=== PATIENT | female | born 1980 | race Two or more races ===

== ENCOUNTER 2024-08-23 07:15 | Inpatient (IN) | payer OTHER ==
[~2024-08-23] VITALS: Ht 162.6 cm; Wt 72.6 kg
[2024-08-23 07:29] LABS: HEMATOCRIT 34.7 % (36.0-45.00); HEMOGLOBIN 11.5 g/dL (12.0-15.00); MEAN CELL VOLUME 74.8 fL (80.00-100.00); MEAN CORPUSCULAR HEMOGLOBIN 24.8 pg (27.00-32.0); MEAN CORPUSCULAR HGB CONC 33.1 g/dl (32.0-36.0); PLATELET COUNT 443 K/uL (150-450); RED BLOOD COUNT 4.65 M/uL (4.00-6.00)
[2024-08-23 07:35] LABS: RED CELL DISTRIBUTION WIDTH 18.3 % (11.5-14.5)
[2024-08-23 07:37] LABS: PH,URINE 6.5 (5.0-8.0); URINE APPEARANCE Clear; URINE BILIRRUBIN Negative (NEGATIVE); URINE BLOOD Negative; URINE COLOR Yellow; URINE GLUCOSE Negative (NEGATIVE); URINE KETONE Negative (NEGATIVE); URINE LEUKOCYTE Moderate; URINE NITRATE Negative; URINE PROTEIN Negative (NEGATIVE); URINE UROBILINOGEN 0.2 E.U./dl
[2024-08-23 07:41] LABS: URINE BACTERIA 6254.6 uL (0.0-1933); URINE EPITHELIAL CELLS 14.8 uL (0.0-38.8); URINE RBC 14.5 uL (0.0-20.8); URINE WBC 267.4 uL (0.0-23.2)
[2024-08-23 07:53] LABS: INR 0.94; PARTIAL THROMBOPLASTIN TIME 26.2 SECONDS (22.0-34.0); PROTHROMBIN TIME 10.3 SECONDS (9.0-11.5)
[2024-08-23 08:58] LABS: ALBUMIN 3.8 gm/dL (3.4-5.0); BILIRUBIN TOTAL 0.34 mg/dL (0.3-1.2); CREATININE SERUM 0.6 mg/dL (0.55-1.02); GFR 109.63; GLOBULINA 3.9 G/DL (2.4-3.5); POTASSIUM 4.27 mEq/L (3.5-5.1); TOTAL PROTEIN 7.7 gm/dL (6.4-8.2); TSH 1.48 uIU/mL (0.358-3.74)
[2024-09-05] MEDS ORDERED: POVIDONE-IODINE SCRUB 118 ML BOTT TOP ONE (09:45)
[2024-09-05] MEDS ORDERED: CEFOXITIN SODIUM 2,000 MG VIAL IV ONE (09:45)
[2024-09-05] MEDS ORDERED: RINGERS SOLUTION,LACTATED 1,000 ML IV SCH (11:15)
[2024-09-05] MEDS ORDERED: MORPHINE SULFATE 4 MG/ML VIAL IV ONE ×2 (11:55→12:25)
[2024-09-05 13:39] LABS: HEMATOCRIT 32.5 % (36.0-45.00); HEMOGLOBIN 10.5 g/dL (12.0-15.00); MEAN CELL VOLUME 74.6 fL (80.00-100.00); MEAN CORPUSCULAR HGB CONC 32.2 g/dl (32.0-36.0); PLATELET COUNT 413 K/uL (150-450); RED BLOOD COUNT 4.36 M/uL (4.00-6.00); RED CELL DISTRIBUTION WIDTH 17.8 % (11.5-14.5)
[2024-09-05 13:48] VITALS: BP 117/77
[2024-09-05] MEDS ORDERED: MEPERIDINE HCL/PF 50 MG/ML VIAL IV SCH (14:00)
[2024-09-05] MEDS ORDERED: PROMETHAZINE HCL 50 MG/ML AMPUL IV SCH (14:00)
[2024-09-05] MEDS ORDERED: SIMETHICONE 125 MG CAPSULE PO SCH (17:00)
[2024-09-05 17:10] VITALS: BP 117/77
[2024-09-05] MEDS ORDERED: MEPERIDINE HCL/PF 50 MG/ML VIAL IV PRN (19:30)
[2024-09-05] MEDS ORDERED: PROMETHAZINE HCL 50 MG/ML AMPUL IV PRN (19:30)
[2024-09-06 01:43] VITALS: BP 141/79
[2024-09-06 08:38] VITALS: BP 140/83
[2024-09-06] MEDS ORDERED: ACETAMINOPHEN WITH CODEINE 1 UDTAB TABLET PO SCH (09:00)
[2024-09-06 17:15] VITALS: BP 100/69
[2024-09-07 00:05] VITALS: BP 97/64
[2024-09-07] MEDS ORDERED: BUTALB/ACETAMINOPHEN/CAFFEINE 1 TAB TABLET PO PRN (11:15)
[2024-09-07 13:48] VITALS: BP 120/82
[2024-09-07 16:00] VITALS: BP 116/75
[2024-09-07 23:49] VITALS: BP 111/76
[2024-09-08] MEDS ORDERED: Tylenol #3 PO (06:41)
== END 2024-09-08 08:08 | disposition home or self-care (01) | DRG 743 ==
LOC: O/R 09-05 05:48 → OB/GYN 09-05 07:15
PROVIDERS: ADMIT Obstetrics & Gynecology; ATTEND Obstetrics & Gynecology
PROC: 0UT70ZZ Resection of Bilateral Fallopian Tubes, Open Approach (ICD-10-PCS; 2024-09-05)
PROC: 0UT20ZZ Resection of Bilateral Ovaries, Open Approach (ICD-10-PCS; 2024-09-05)
PROC: 0DNW0ZZ Release Peritoneum, Open Approach (ICD-10-PCS; 2024-09-05)
PROC: 0TJB8ZZ Inspection of Bladder, Via Natural or Artificial Opening Endoscopic (ICD-10-PCS; 2024-09-05)
PROC: 0UT90ZZ Resection of Uterus, Open Approach (ICD-10-PCS; principal; 2024-09-05 09:00)
DX: D25.1 Intramural leiomyoma of uterus (principal); N81.11 Cystocele, midline; N84.0 Polyp of corpus uteri; N92.5 Other specified irregular menstruation; N83.02 Follicular cyst of left ovary; N83.01 Follicular cyst of right ovary; N83.12 Corpus luteum cyst of left ovary; N83.11 Corpus luteum cyst of right ovary; Z20.822 Contact with and (suspected) exposure to COVID-19

== ENCOUNTER 2024-09-25 10:13 | Emergency (ER) | payer OTHER ==
[~2024-09-25] VITALS: Ht 162.6 cm; Wt 69.4 kg
[~2024-09-25 10:13] MED LIST: Tylenol #3 PO
[2024-09-25 10:34] VITALS: BP 150/80; O2SAT 100
[2024-09-25] MEDS ORDERED: HYDROCORTISONE ACETATE 25 MG/SUPP.RECT SUPP.RECT RECTAL STA (11:25)
[2024-09-25] MEDS ORDERED: MEPERIDINE HCL 25 MG/ML AMPUL IM STA (11:27)
[2024-09-25 12:26] LABS: HEMATOCRIT 31.9 % (36.0-45.00); HEMOGLOBIN 10.4 g/dL (12.0-15.00); MEAN CELL VOLUME 74.3 fL (80.00-100.00); MEAN CORPUSCULAR HEMOGLOBIN 24.3 pg (27.00-32.0); MEAN CORPUSCULAR HGB CONC 32.8 g/dl (32.0-36.0); PLATELET COUNT 533 K/uL (150-450); RED BLOOD COUNT 4.29 M/uL (4.00-6.00); RED CELL DISTRIBUTION WIDTH 17.1 % (11.5-14.5)
[2024-09-25 12:53] LABS: CALCIUM 9.5 mg/dL (8.5-10.1); CREATININE SERUM 0.54 mg/dL (0.55-1.02); GFR 123.81; POTASSIUM 3.52 mEq/L (3.5-5.1)
[2024-09-25 13:17] LABS: URINE APPEARANCE Clear; URINE BILIRRUBIN Negative (NEGATIVE); URINE BLOOD Small; URINE COLOR Yellow; URINE GLUCOSE Negative (NEGATIVE); URINE KETONE 15 (NEGATIVE); URINE LEUKOCYTE Moderate; URINE NITRATE Positive; URINE PROTEIN 30 (NEGATIVE)
[2024-09-25 13:21] LABS: URINE EPITHELIAL CELLS 9.6 uL (0.0-38.8); URINE RBC 37.4 uL (0.0-20.8); URINE WBC 209.2 uL (0.0-23.2)
[2024-09-25 13:31] LABS: URINE BACTERIA > 9821.5 uL (0.0-1933); URINE CAST 1.32 uL (0.0-1.40)
[2024-09-25] MEDS ORDERED: CEFTRIAXONE SODIUM 1,000 MG VIAL IV ONE (13:45)
[2024-09-25] MEDS ORDERED: CEPHALEXIN500 MG PO (17:09)
[2024-09-25] MEDS ORDERED: ANALPRAM HC 2.530 GM RECTAL (17:09)
== END 2024-09-25 17:15 | disposition home or self-care (01) ==
LOC: ER 10:16
PROVIDERS: General Practice
DX: K64.9 Unspecified hemorrhoids (principal); N39.0 Urinary tract infection, site not specified; Z88.6 Allergy status to analgesic agent